=== PATIENT | female | born 1965 | race Caucasian/White ===

== ENCOUNTER 2018-05-29 15:43 | Inpatient (IN) | payer MEDICAID ==
[~2018-05-29] VITALS: Ht 170.2 cm; Wt 62.6 kg
[2018-05-29 19:52] VITALS: BP 118/60
[2018-05-29] MEDS: LORazepam 2 MG TABLET PO PRN (20:01)
[2018-05-29] MEDS ORDERED: PNEUMOCOCCAL VACCINE POLYVALENT 0.5 ML VIAL [PPSV23] IM ONE (20:45)
[2018-05-29 21:59] LABS: GLUCOMETER DEV NAME(LOC) BV2S 2; GLUCOSE,POINT OF CARE 110 MG/DL (70-110)
[2018-05-29] MEDS ORDERED: ACETAMINOPHEN 325 MG TABLET PO PRN (23:00)
[2018-05-29] MEDS ORDERED: GuaiFENesin/D-METHORPHAN [SUGAR-FREE] 200-20MG/10 ML SYRUP UDCUP PO PRN (23:00)
[2018-05-29] MEDS ORDERED: PETROLATUM,WHITE 71 GM JELLY TP PRN (23:00)
[2018-05-29] MEDS ORDERED: CloNIDine HCL 0.1 MG TABLET PO PRN (23:00)
[2018-05-29] MEDS ORDERED: NICOTINE 14 MG/24 HOUR PATCH TD PRN (23:00)
[2018-05-29] MEDS ORDERED: LOPERAMIDE HCL 2 MG CAPSULE PO PRN (23:00)
[2018-05-30 00:06] VITALS: BP 102/60
[2018-05-30 06:00] VITALS: BP 108/66
[2018-05-30] MEDS: LORazepam 2 MG TABLET PO PRN ×3 (06:13→16:43)
[2018-05-30 07:22] LABS: BASOPHILS % (AUTO) 0.3 % (0.0-2.0); EOSINOPHILS % (AUTO) 2.4 % (1.0-6.0); HEMATOCRIT 38.5 % (36-46); HEMOGLOBIN 13.3 g/dL (12.0-16.0); LYMPHOCYTES # (AUTO) 2.4 K/uL (1.0-4.8); MEAN CORPUSCULAR HEMOGLOBIN 33.5 pg (26.0-34.0); MEAN CORPUSCULAR HGB CONC 34.6 G/dL (31.0-37.0); MEAN CORPUSCULAR VOLUME 97 fL (80-100); MONOCYTES # (AUTO) 0.7 K/uL (0.1-1.0); MONOCYTES % (AUTO) 9.5 % (2.0-9.0); NEUTROPHILS # (AUTO) 3.7 K/uL (1.8-7.7); NEUTROPHILS % (AUTO) 52.8 % (40.0-70.0); PLATELET COUNT (AUTO) 199 K/uL (150-450); RED BLOOD CELL COUNT(AUTO) 3.98 MIL/uL (4.00-5.20); RED CELL DISTRIBUTION WIDTH 13.2 % (11.5-14.5)
[2018-05-30 07:50] LABS: HEMOGLOBIN A1C 5.2 % (4.5-6.2)
[2018-05-30 07:53] LABS: SODIUM SERUM 143 mmol/L (136-145)
[2018-05-30 07:54] LABS: ALANINE AMINOTRANSFERASE 30 U/L (12-78); ALKALINE PHOSPHATASE 58 U/L (46-116); ANION GAP 4 mmol/L (8-16); ASPARTATE AMINOTRANSFERASE 18 U/L (15-37); BILIRUBIN,TOTAL 0.3 mg/dL (0.1-1.0); CALCIUM, TOTAL 8.6 mg/dL (8.8-10.5); CARBON DIOXIDE 32 mmol/L (22-29); CHLORIDE 107 mmol/L (98-107); CHOL/HDL RATIO 2.9 (3.9-5.7); CHOLESTEROL 132 mg/dL (131-200); CREATININE 0.88 mg/dL (0.60-1.30); FREE T4 (FREE THYROXINE) 1.11 ng/dL (0.76-1.46); GLOMERULAR FILTR. RATE CALC > 60 mL/min (>60); GLUCOSE,RANDOM 92 mg/dL (70-110); HCG,QUANTITATIVE 3 mIU/mL (0-6); HDL CHOLESTEROL 45 mg/dL (40-60); LDL CHOL (CALC.) 75 mg/dL (0-130); POTASSIUM 4.3 mmol/L (3.5-5.1); THYROID STIMULATING HORMONE 1.01 uIU/mL (0.36-3.74); TOTAL PROTEIN, SERUM 5.6 g/dL (6.4-8.2); TRIGLYCERIDES 58 mg/dL (15-150); UREA NITROGEN, BLOOD 24 mg/dL (7-18)
[2018-05-30 07:59] LABS: AMPHET/METH SCREEN,URINE NEGATIVE (NEGATIVE); BARBITURATE SCREEN, URINE NEGATIVE (NEGATIVE); BENZODIAZEPINES SCREEN,URINE NEGATIVE (NEGATIVE); CANNABINOID SCREEN,URINE NEGATIVE (NEGATIVE); COCAINE SCREEN,URINE NEGATIVE (NEGATIVE); METHADONE SCREEN, URINE NEGATIVE (NEGATIVE); OPIATE SCREEN,URINE NEGATIVE (NEGATIVE)
[2018-05-30 08:01] LABS: APPEARANCE,URINE TURBID (CLEAR); BILIRUBIN,URINE NEGATIVE (NEGATIVE); GLUCOSE, URINE (UA) NEGATIVE (NEGATIVE); KETONES,URINE NEGATIVE (NEGATIVE); LEUKOCYTE ESTERASE ,URINE MODERATE (NEGATIVE); NITRATE,URINE NEGATIVE (NEGATIVE); OCCULT BLOOD,URINE NEGATIVE (NEGATIVE); PH,URINE 5.5 (5.0-8.0); PHENCYCLIDINE SCREEN,URINE NEGATIVE (NEGATIVE); PROTEIN,URINE NEGATIVE (NEGATIVE); UROBILINOGEN,URINE 0.2 mg/dL (<=1.0)
[2018-05-30 08:06] VITALS: BP 114/60
[2018-05-30 08:44] LABS: BACTERIA,URINE Many /HPF (None Seen); RBC,URINE 0-2 /HPF (0-2)
[2018-05-30 08:45] LABS: SQUAMOUS EPITHELIAL CELL,UR Few /LPF (None Seen); TRIPLE PHOSPHATE CRYSTAL,UR Few /LPF (None Seen)
[2018-05-30] MEDS: HALOPERIDOL 5 MG TABLET PO PRN ×2 (10:45→16:43)
[2018-05-30] MEDS: SERTRALINE HCL 50 MG TABLET PO SCH (11:24)
[2018-05-30 16:21] VITALS: BP 104/63
[2018-05-30] MEDS: DOCUSATE SODIUM 100 MG CAPSULE PO PRN (17:07)
[2018-05-30] MEDS: RisperiDONE 1 MG TABLET PO SCH (20:08)
[2018-05-31 00:03] VITALS: BP 108/60
[2018-05-31 08:00] VITALS: BP 116/76
[2018-05-31] MEDS: SERTRALINE HCL 50 MG TABLET PO SCH (08:07)
[2018-05-31 08:57] LABS: APPEARANCE,URINE CLOUDY (CLEAR); BILIRUBIN,URINE NEGATIVE (NEGATIVE); GLUCOSE, URINE (UA) NEGATIVE (NEGATIVE); KETONES,URINE NEGATIVE (NEGATIVE); LEUKOCYTE ESTERASE ,URINE LARGE (NEGATIVE); NITRATE,URINE NEGATIVE (NEGATIVE); OCCULT BLOOD,URINE NEGATIVE (NEGATIVE); PROTEIN,URINE NEGATIVE (NEGATIVE); UROBILINOGEN,URINE 0.2 mg/dL (<=1.0)
[2018-05-31 09:02] LABS: AMPHET/METH SCREEN,URINE NEGATIVE (NEGATIVE); BARBITURATE SCREEN, URINE NEGATIVE (NEGATIVE); BENZODIAZEPINES SCREEN,URINE NEGATIVE (NEGATIVE); CANNABINOID SCREEN,URINE NEGATIVE (NEGATIVE); COCAINE SCREEN,URINE NEGATIVE (NEGATIVE); METHADONE SCREEN, URINE NEGATIVE (NEGATIVE); OPIATE SCREEN,URINE NEGATIVE (NEGATIVE); PHENCYCLIDINE SCREEN,URINE NEGATIVE (NEGATIVE)
[2018-05-31 09:25] LABS: RENAL EPITHELIAL CELLS,URINE Few /LPF (None Seen); SQUAMOUS EPITHELIAL CELL,UR Moderate /LPF (None Seen)
[2018-05-31 09:26] LABS: BACTERIA,URINE Few /HPF (None Seen); CALCIUM OXALATE CRYSTALS,UR Few /LPF (None Seen)
[2018-05-31] MEDS: CEPHALEXIN MONOHYDRATE 500 MG CAPSULE PO SCH ×2 (12:24→16:30)
[2018-05-31] MEDS: HALOPERIDOL 5 MG TABLET PO PRN (14:21)
[2018-05-31] MEDS: LORazepam 2 MG TABLET PO PRN (14:21)
[2018-05-31 17:53] VITALS: BP 104/60
[2018-05-31] MEDS: RisperiDONE 1 MG TABLET PO SCH (20:54)
[2018-05-31] MEDS: ALBUTEROL SULFATE HFA 90 MCG/PUFF 8 GM INHALER IH PRN (22:51)
[2018-06-01 00:26] VITALS: BP 108/68
[2018-06-01 08:11] VITALS: BP 117/69
[2018-06-01] MEDS: SERTRALINE HCL 50 MG TABLET PO SCH (09:22)
[2018-06-01] MEDS: CEPHALEXIN MONOHYDRATE 500 MG CAPSULE PO SCH ×3 (09:22→16:13)
[2018-06-01 16:15] VITALS: BP 111/60
[2018-06-01] MEDS: LORazepam 2 MG TABLET PO PRN (16:17)
[2018-06-01] MEDS: RisperiDONE 1 MG TABLET PO SCH (20:14)
[2018-06-02 04:35] VITALS: BP 109/65
[2018-06-02 06:29] VITALS: BP 115/66
[2018-06-02 08:07] VITALS: BP 125/66
[2018-06-02] MEDS: SERTRALINE HCL 50 MG TABLET PO SCH (08:10)
[2018-06-02] MEDS: CEPHALEXIN MONOHYDRATE 500 MG CAPSULE PO SCH ×3 (08:10→16:28)
[2018-06-02] MEDS: LORazepam 2 MG TABLET PO PRN ×2 (11:07→16:28)
[2018-06-02 16:05] VITALS: BP 115/62
[2018-06-02] MEDS: RisperiDONE 1 MG TABLET PO SCH (20:31)
[2018-06-03] MEDS: DOCUSATE SODIUM 100 MG CAPSULE PO PRN ×2 (02:17→13:01)
[2018-06-03 02:18] VITALS: BP 106/66
[2018-06-03 08:02] VITALS: BP 100/53
[2018-06-03 08:55] VITALS: BP 119/71
[2018-06-03] MEDS: SERTRALINE HCL 50 MG TABLET PO SCH (08:55)
[2018-06-03] MEDS: CEPHALEXIN MONOHYDRATE 500 MG CAPSULE PO SCH ×3 (08:55→16:02)
[2018-06-03] MEDS ORDERED: ONDANSETRON HCL 4 MG TABLET PO PRN (09:45)
[2018-06-03 16:32] VITALS: BP 109/60
[2018-06-03] MEDS: RisperiDONE 1 MG TABLET PO SCH (20:02)
[2018-06-03] MEDS: LORazepam 2 MG TABLET PO PRN (20:02)
[2018-06-03] MEDS: ALBUTEROL SULFATE HFA 90 MCG/PUFF 8 GM INHALER IH PRN (20:10)
[2018-06-03] MEDS: IBUPROFEN 400 MG TABLET PO PRN (21:56)
[2018-06-03 21:58] VITALS: BP 119/68
[2018-06-04 05:45] VITALS: BP 106/68
[2018-06-04 08:00] VITALS: BP 86/52
[2018-06-04] MEDS: SERTRALINE HCL 50 MG TABLET PO SCH (08:14)
[2018-06-04] MEDS: CEPHALEXIN MONOHYDRATE 500 MG CAPSULE PO SCH ×3 (08:15→16:02)
[2018-06-04] MEDS ORDERED: SERTRALINE HCL 50 MG TABLET PO ONE (10:45)
[2018-06-04] MEDS: ALBUTEROL SULFATE HFA 90 MCG/PUFF 8 GM INHALER IH PRN (11:01)
[2018-06-04 16:11] VITALS: BP 109/64
[2018-06-04] MEDS: RisperiDONE 1 MG TABLET PO SCH (20:04)
[2018-06-05] MEDS: ZOLPIDEM TARTRATE 10 MG TABLET PO PRN ×2 (00:06→20:11)
[2018-06-05] MEDS: HALOPERIDOL 5 MG TABLET PO PRN (00:07)
[2018-06-05 00:11] VITALS: BP 118/68
[2018-06-05 08:00] VITALS: BP 124/65
[2018-06-05] MEDS: CEPHALEXIN MONOHYDRATE 500 MG CAPSULE PO SCH ×3 (08:22→17:01)
[2018-06-05] MEDS: SERTRALINE HCL 100 MG TABLET PO SCH (08:22)
[2018-06-05] MEDS: BECLOMETHASONE DIPR HFA 80 MCG/PUFF 10.6 GM INHALER IH SCH (17:01)
[2018-06-05 17:58] VITALS: BP 131/68
[2018-06-05] MEDS: RisperiDONE 2 MG TABLET PO SCH (20:11)
[2018-06-06 01:11] VITALS: BP 115/61
[2018-06-06 04:55] VITALS: BP 105/59
[2018-06-06] MEDS: HALOPERIDOL 5 MG TABLET PO PRN (05:01)
[2018-06-06] MEDS: LORazepam 2 MG TABLET PO PRN (05:01)
[2018-06-06 08:30] VITALS: BP 101/54
[2018-06-06] MEDS: SERTRALINE HCL 100 MG TABLET PO SCH (08:42)
[2018-06-06] MEDS: CEPHALEXIN MONOHYDRATE 500 MG CAPSULE PO SCH ×3 (08:42→16:22)
[2018-06-06 09:00] VITALS: BP 108/60
[2018-06-06] MEDS: BECLOMETHASONE DIPR HFA 80 MCG/PUFF 10.6 GM INHALER IH SCH ×2 (09:00→16:22)
[2018-06-06 16:03] VITALS: BP 111/71
[2018-06-06] MEDS: RisperiDONE 2 MG TABLET PO SCH (20:12)
[2018-06-06] MEDS: DOCUSATE SODIUM 100 MG CAPSULE PO PRN (20:12)
[2018-06-06 20:59] VITALS: BP 110/66
[2018-06-06] MEDS: ZOLPIDEM TARTRATE 10 MG TABLET PO PRN (20:59)
[2018-06-06] MEDS: IBUPROFEN 400 MG TABLET PO PRN (20:59)
[2018-06-07 02:19] VITALS: BP 111/67
[2018-06-07 08:19] VITALS: BP 112/68
[2018-06-07] MEDS: CEPHALEXIN MONOHYDRATE 500 MG CAPSULE PO SCH ×2 (08:28→12:35)
[2018-06-07] MEDS: SERTRALINE HCL 100 MG TABLET PO SCH (08:28)
[2018-06-07] MEDS: BECLOMETHASONE DIPR HFA 80 MCG/PUFF 10.6 GM INHALER IH SCH ×2 (08:28→16:57)
[2018-06-07 16:09] VITALS: BP 105/62
[2018-06-07] MEDS: IBUPROFEN 400 MG TABLET PO PRN (17:43)
[2018-06-07] MEDS: RisperiDONE 2 MG TABLET PO SCH (20:22)
[2018-06-07 23:52] VITALS: BP 123/71
[2018-06-07] MEDS: ZOLPIDEM TARTRATE 10 MG TABLET PO PRN (23:55)
[2018-06-07] MEDS: HALOPERIDOL 5 MG TABLET PO PRN (23:55)
[2018-06-08] MEDS: LORazepam 2 MG TABLET PO PRN (03:46)
[2018-06-08 04:56] VITALS: BP 118/74
[2018-06-08 08:04] VITALS: BP 105/64
[2018-06-08] MEDS: SERTRALINE HCL 100 MG TABLET PO SCH (08:07)
[2018-06-08] MEDS: BECLOMETHASONE DIPR HFA 80 MCG/PUFF 10.6 GM INHALER IH SCH ×2 (08:07→16:07)
[2018-06-08 16:00] VITALS: BP 119/78
[2018-06-08] MEDS: RisperiDONE 2 MG TABLET PO SCH (20:18)
[2018-06-09 01:10] VITALS: BP 100/60
[2018-06-09] MEDS: SERTRALINE HCL 100 MG TABLET PO SCH (08:21)
[2018-06-09] MEDS: BECLOMETHASONE DIPR HFA 80 MCG/PUFF 10.6 GM INHALER IH SCH ×2 (08:21→16:50)
[2018-06-09 08:32] VITALS: BP 100/61
[2018-06-09] MEDS ORDERED: ARIPiprazole LAUROXIL ER SUSPENSION 882 MG/3.2 ML SYRINGE IM SCH (09:00)
[2018-06-09 10:11] VITALS: BP 121/66
[2018-06-09 10:48] VITALS: BP 125/73
[2018-06-09 11:52] VITALS: BP 122/64
[2018-06-09] MEDS: CEPHALEXIN MONOHYDRATE 500 MG CAPSULE PO SCH (15:54)
[2018-06-09 16:00] VITALS: BP 118/66
[2018-06-09] MEDS: RisperiDONE 2 MG TABLET PO SCH (20:36)
[2018-06-09] MEDS: ZOLPIDEM TARTRATE 10 MG TABLET PO PRN (22:18)
[2018-06-10] MEDS: CEPHALEXIN MONOHYDRATE 500 MG CAPSULE PO SCH ×2 (00:04→08:26)
[2018-06-10 00:12] VITALS: BP 112/74
[2018-06-10 08:16] VITALS: BP 121/62
[2018-06-10] MEDS: BECLOMETHASONE DIPR HFA 80 MCG/PUFF 10.6 GM INHALER IH SCH (08:26)
[2018-06-10] MEDS: SERTRALINE HCL 100 MG TABLET PO SCH (08:26)
[2018-06-10] MEDS ORDERED: SERT100T12 PO ×2 (11:48→12:30)
[2018-06-10] MEDS ORDERED: RISP2 PO ×2 (11:48→12:30)
[2018-06-10] MEDS ORDERED: BECL10.62 IH (12:30)
[2018-06-10] MEDS ORDERED: CEPH500 PO (12:30)
== END 2018-06-10 15:30 | disposition home or self-care (01) | DRG 751 ==
LOC: B2S 18:52
PROC: 3E0234Z Introduction of Serum, Toxoid and Vaccine into Muscle, Percutaneous Approach (ICD-10-PCS; principal; 2018-05-31)
DX: F33.3 Major depressive disorder, recurrent, severe with psychotic symptoms (principal); F41.9 Anxiety disorder, unspecified; J45.909 Unspecified asthma, uncomplicated; N39.0 Urinary tract infection, site not specified; Z79.899 Other long term (current) drug therapy; Z23 Encounter for immunization
CPT/HCPCS: 80307; 83036; 84439; 84443; 87081; 87086; 90732; J3535